=== PATIENT | male | born 1965 | race Caucasian/White ===

== ENCOUNTER 2018-05-09 07:04 | Emergency (ER) | payer BC ==
[~2018-05-09] VITALS: Ht 172.7 cm; Wt 77.3 kg
[~2018-05-09 07:04] MED LIST: AMBIEN 5MG TABLE5 MG PO; FLONASE NASAL S16 GM NS; LYRICA 150MG C150 MG PO; VIAGRA 25MG TAB25 MG PO
[2018-05-09 07:05] VITALS: TEMP 98
[2018-05-09 07:43] LABS: BASO % 0.8 % (0.0-2.0); EOS # 0.1 (0.0-0.7); EOS % 2.3 % (0-4.0); GRAN # 2.9 (1.4-6.5); GRAN % 60.5 % (42.2-75.2); HEMATOCRIT 45.2 % (42.0-52.0); HEMOGLOBIN 15.7 g/dl (13.5-18.0); LYMPH # 1.3 (1.2-3.4); LYMPH % 27.1 % (20.0-51.0); MEAN CELL VOLUME 85 fl (80.0-100.0); MEAN CORPUSCULAR HEMOGLOBIN 30 pg (27.0-31.0); MEAN CORPUSCULAR HGB CONC 35 g/dl (33.0-37.0); MEAN PLATELET VOLUME 9.9 fl (7.4-10.4); MONO # 0.4 (0.1-0.6); MONO % 9.1 % (1.7-9.3); PLATELET COUNT 197 K/mm3 (130-400); REDCELL DISTRIBUTION WIDTH-CV 12.8 % (11.5-14.5)
[2018-05-09 07:57] LABS: ALANINE AMINOTRANSFERASE 36 U/L (21-72); ALBUMIN 3.7 gm/dL (3.5-5.0); ALKALINE PHOSPHATASE 106 U/L (50-136); ANION GAP 10 mmol/L (7-16); AST,SGOT 24 U/L (15-37); BILIRUBIN,TOTAL 0.5 mg/dL (0.0-1.0); BLOOD UREA NITROGEN 20 mg/dL (9-20); CALCIUM 8.5 mg/dL (8.4-10.2); CARBON DIOXIDE 25 mmol/L (22-30); CHLORIDE 105 mmol/L (98-107); CREATININE, serum 1.03 mg/dL (0.66-1.25); GLUCOSE 94 mg/dL (74-106); POTASSIUM 3.7 mmol/L (3.4-5.0); SODIUM 139 mmol/L (137-145); TOTAL PROTEIN 6.3 gm/dL (6.4-8.2)
[2018-05-09 08:08] LABS: TROPONIN-I < 0.012 ng/mL (0.000-0.034)
[2018-05-09 08:59] VITALS: BP 126/80; PULSE 64
== END 2018-05-09 09:00 | disposition home or self-care (01) ==
LOC: COL.ER 07:04
PROVIDERS: Emergency Medicine
DX: R42 Dizziness and giddiness (principal); R06.4 Hyperventilation

== ENCOUNTER 2019-11-26 19:03 | Emergency (ER) | payer BC ==
[~2019-11-26] VITALS: Ht 172.7 cm; Wt 76.8 kg
[2019-11-26 19:23] VITALS: BP 129/71; TEMP 97.7
[2019-11-26 20:16] LABS: STREP SCREEN NEGATIVE
[2019-11-26 21:37] VITALS: PULSE 79
== END 2019-11-26 21:45 | disposition home or self-care (01) ==
LOC: COL.ER 19:03
PROVIDERS: Emergency Medicine
DX: B08.5 Enteroviral vesicular pharyngitis (principal); Z79.51 Long term (current) use of inhaled steroids
CPT/HCPCS: J1100

== ENCOUNTER 2020-03-23 18:40 | Emergency (ER) | payer BC ==
[~2020-03-23] VITALS: Ht 172.7 cm; Wt 79.5 kg
[2020-03-23 18:45] VITALS: BP 160/90; TEMP 99.2
[2020-03-23] MEDS ORDERED: CEPHALEXIN500 M1 PO (19:39)
[2020-03-23 20:30] VITALS: PULSE 66
== END 2020-03-23 20:34 | disposition home or self-care (01) ==
LOC: COL.ER 18:40
DX: S61.311A Laceration without foreign body of left index finger with damage to nail, initial encounter (principal); Z23 Encounter for immunization; Z98.890 Other specified postprocedural states; W23.0XXA Caught, crushed, jammed, or pinched between moving objects, initial encounter; Y99.0 Civilian activity done for income or pay

== ENCOUNTER 2021-07-06 07:07 | Day surgery (SDC) | payer BC ==
[~2021-07-06] VITALS: Ht 172.7 cm; Wt 80.2 kg
[~2021-07-06 07:07] MED LIST changes: +CEPHALEXIN500 M1 PO
[2021-07-06] MEDS ORDERED: PEPCID 20MG TAB20 MG PO (07:34)
[2021-07-06] MEDS ORDERED: FLONASE NASAL S16 GM NS (07:35)
[2021-07-06 07:49] VITALS: BP 124/77; PULSE 70; TEMP 97.3
[2021-07-06 09:10] VITALS: BP 111/79; PULSE 68; TEMP 97.3
[2021-07-06 09:25] VITALS: BP 106/70; PULSE 62
--- NOTE | 2021-07-06 09:35 | NUR ---
0910 PATIENT ARRIVES TO [facility] [place] [facility]. AMBULATED TO CHAIR WITH 1:1 ASSIST. WARM BLANKET GIVEN FOR COMFORT. VSS. PATIENT DENIES COMPLAINT. REQUESTS JONNATHAN AND LORI BAÑUELOS. PATIENT'S SON AT CHAIRSIDE. 09 PATIENT ALERT. TOLERATING PO WELL. DENIES COMPLAINT. VSS.
[2021-07-06 09:40] VITALS: BP 113/70; PULSE 62
--- NOTE | 2021-07-06 10:02 | NUR ---
0940 PATIENT ALERT. VSS. TOLERATED PO WELL. IV TO R HAND DISCONTINUED. CATHETER INTACT. PATIENT TOLERATED WELL. WASTED 550 ML LR. D/C INSTRUCTIONS, VERBAL AND WRITTEN GIVEN TO PATIENT. QUESTIONS INVITED AND ANSWERED. PATIENT VERBALIZED UNDERSTANDING. [id number] PATIENT D/C'D TO POV VIA W/C WITH SON. PATIENT HAS PERSONAL BELONGINGS AND PATIENT INFORMATION.
== END 2021-07-06 09:53 ==
LOC: SDCO 07:07
DX: Z12.11 Encounter for screening for malignant neoplasm of colon (principal); K21.9 Gastro-esophageal reflux disease without esophagitis; M81.0 Age-related osteoporosis without current pathological fracture; J45.909 Unspecified asthma, uncomplicated; G47.00 Insomnia, unspecified; M51.36 Other intervertebral disc degeneration, lumbar region; Z79.899 Other long term (current) drug therapy; Z86.010 Personal history of colon polyps
CPT/HCPCS: J2704; J7120

== ENCOUNTER 2022-03-15 07:56 | Emergency (ER) | payer BC ==
[~2022-03-15] VITALS: Ht 172.7 cm; Wt 79.5 kg
[~2022-03-15 07:56] MED LIST changes: +PEPCID 20MG TAB20 MG PO
[2022-03-15 08:13] VITALS: BP 135/78; TEMP 98.6
[2022-03-15 09:02] VITALS: PULSE 62
== END 2022-03-15 09:05 | disposition home or self-care (01) ==
LOC: COL.ER 07:56
DX: S91.311A Laceration without foreign body, right foot, initial encounter (principal); Z28.310 Unvaccinated for COVID-19; W26.0XXA Contact with knife, initial encounter